=== PATIENT | male | born 1990 | race Caucasian/White ===

== ENCOUNTER → 2018-07-27 08:44 | Outpatient (CLI) | payer BC ==
[2015-02-26 09:46] VITALS: BMI 43.3
[~2018-07-27 08:44] MED LIST: ADIPEX-P37.5 M1 PO; AMBIEN10 MG PO; CELEXA40 MG PO; CLARITIN 10 MG10 MG PO; FLOMAX0.4 MG PO; HYDROCHLOROTHIA25 MG GT; LIPITOR10 MG PO; NAPROSYN500 MG PO
== END | disposition home or self-care (01) ==
LOC: D.MRI 06-29 08:30
DX: M54.5 Low back pain (principal)